=== PATIENT | female | born 1945 | race Two or more races ===

== ENCOUNTER 2021-09-04 05:15 | Day surgery (SDC) | payer OTHER | END 2021-09-04 12:15 | disposition home or self-care (01) | LOC: AMB-ENDOS 05:15 | PROVIDERS: ATTEND Colon & Rectal Surgery | DX: K63.5 Polyp of colon (principal); K59.09 Other constipation; Z86.010 Personal history of colon polyps; K57.30 Diverticulosis of large intestine without perforation or abscess without bleeding; K64.0 First degree hemorrhoids; Z20.822 Contact with and (suspected) exposure to COVID-19; E78.5 Hyperlipidemia, unspecified ==